=== PATIENT | male | born 1995 | race Caucasian/White ===

== ENCOUNTER 2019-02-28 07:00 | Emergency (ER) | payer MEDICAID ==
[~2019-02-28] VITALS: Ht 167.6 cm; Wt 84.1 kg
[2019-02-28 07:03] VITALS: TEMP 97.7
[2019-02-28 07:47] LABS: BASO % 0.6 % (0.0-2.0); EOS # 0.5 (0.0-0.7); EOS % 7.8 % (0-4.0); GRAN # 2.8 (1.4-6.5); GRAN % 42.3 % (42.2-75.2); HEMATOCRIT 46.4 % (42.0-52.0); HEMOGLOBIN 15.4 g/dl (13.5-18.0); LYMPH # 2.7 (1.2-3.4); LYMPH % 40.7 % (20.0-51.0); MEAN CELL VOLUME 88 fl (80.0-100.0); MEAN CORPUSCULAR HEMOGLOBIN 29 pg (27.0-31.0); MEAN CORPUSCULAR HGB CONC 33 g/dl (33.0-37.0); MONO # 0.6 (0.1-0.6); MONO % 8.5 % (1.7-9.3); PLATELET COUNT 193 K/mm3 (130-400); RED BLOOD COUNT 5.28 M/mm3 (4.20-5.60); REDCELL DISTRIBUTION WIDTH-CV 13.3 % (11.5-14.5)
[2019-02-28] MEDS ORDERED: FLONASEALLERGY (07:53)
[2019-02-28 07:55] LABS: ALANINE AMINOTRANSFERASE 14 U/L (21-72); ALKALINE PHOSPHATASE 57 U/L (50-136); ANION GAP 11 mmol/L (7-16); AST,SGOT 30 U/L (15-37); BILIRUBIN,TOTAL 1.1 mg/dL (0.0-1.0); BLOOD UREA NITROGEN 18 mg/dL (9-20); CALCIUM 9.6 mg/dL (8.4-10.2); CARBON DIOXIDE 25 mmol/L (22-30); CHLORIDE 105 mmol/L (98-107); CREATININE, serum 0.96 (0.66-1.25); GLUCOSE 90 mg/dL (74-106); SODIUM 141 mmol/L (137-145); TOTAL PROTEIN 8.1 gm/dL (6.4-8.2)
[2019-02-28 08:11] LABS: TROPONIN-I < 0.012 ng/mL (0.000-0.035)
[2019-02-28] MEDS ORDERED: PREDNISONE20 MG PO (08:17)
[2019-02-28] MEDS ORDERED: PROVENTIL0.09 MG/A1 IH (08:18)
[2019-02-28 08:28] VITALS: BP 118/65; PULSE 62
== END 2019-02-28 08:28 | disposition home or self-care (01) ==
LOC: COL.ER 07:00
PROVIDERS: Emergency Medicine
DX: R06.02 Shortness of breath (principal); Z90.89 Acquired absence of other organs; Z79.51 Long term (current) use of inhaled steroids
CPT/HCPCS: J1885

== ENCOUNTER 2019-06-01 17:52 | Emergency (ER) | payer SELFPAY ==
[~2019-06-01] VITALS: Ht 167.6 cm; Wt 81.8 kg
[~2019-06-01 17:52] MED LIST: FLONASEALLERGY; PREDNISONE20 MG PO; PROVENTIL0.09 MG/A1 IH
[2019-06-01 18:08] VITALS: BP 142/65
[2019-06-01] MEDS ORDERED: TAMIFLU 75MG75 MG PO (20:01)
[2019-06-01 20:10] VITALS: PULSE 78; TEMP 98.4
== END 2019-06-01 20:15 | disposition home or self-care (01) ==
LOC: COL.ER 17:52
DX: J11.1 Influenza due to unidentified influenza virus with other respiratory manifestations (principal); Z79.51 Long term (current) use of inhaled steroids